=== PATIENT | male | born 2000 | race African-American/Black ===

== ENCOUNTER 2022-03-31 07:51 | Emergency (ER) | payer SELFPAY ==
--- NOTE | ~2022-03-31 | CT_ITS ---
EXAMINATION: CT brain wo con INDICATION: Headache COMPARISON: None TECHNIQUE: Standard unenhanced head CT. The dose-length product (DLP) was 605.33 mGy-cm. The mA was a djusted according to patient size. Iterative reconstruction technique was employed. FINDINGS: There is no intracranial hemorrhage, acute infarction, or abnormal mass lesion. The ventric les are normal. There is no abnormal mass effect or midline shift. The vazquez-white matter differentiat ion is normal. The basal cisterns are patent. There are changes of surgical repair in the right orbit . The orbits are otherwise normal. There is mild mucosal thickening of the paranasal sinuses. IMPRESSION: 1. No acute intracranial abnormality. Reviewed, dictated and finalized at location A.
[2022-03-31 08:05] VITALS: BP 130/86; PULSE 82; RESP 16; TEMP 36.6; O2SAT 100
--- NOTE | 2022-03-31 10:27 | ED.HA ---
HPI - Headache General Chief Complaint: Headache Stated Complaint: onset mauricio 2 days ago/now feels tight band Time Seen by Provider: 03/31/22 09:09 Source: patient Mode of arrival: ambulatory Limitations: no limitations History of Present Illness HPI Narrative: This is a 21 year old male that presents to the ER for headaches. Ongoing over the last couple of days. Associated with some nausea and lightheadedness. Denies fever, vomiting, numbness or weakness. Review of Systems Review of Systems: CONSTITUTIONAL: Denies fever EYES: Denies visual changes GASTROINTESTINAL: Denies vomiting NEUROLOGIC: Reports headache. Denies numbness, or weakness. All systems reviewed & are unremarkable except as noted in HPI and below PMFSH Past Medical History Medical History (Updated 03/31/22 @ 10:36 by Lyric Velarde PA-C) History of anxiety Social History Social History (Updated 03/31/22 @ 10:30 by Lyric Velarde PA-C) Smoking status: Former smoker Alcohol intake: current Substance use: current Substance use type: marijuana Exam Narrative: GENERAL: Well-appearing, well-nourished, and in no acute distress. HEAD: Normocephalic, atraumatic. EYES: PERRLA and EOMI. ENT: Nares clear, no rhinorrhea or epistaxis. Mucous membranes moist. Oropharynx without tonsillar hypertrophy exudate or other lesions. Bilateral TMs pearly vazquez non-bulging NECK: Supple. No adenopathy or masses. CHEST: Clear to auscultation. No respiratory distress. No wheezes rales or rhonchi HEART: Regular rate and rhythm. No murmur heard. Normal peripheral pulses. EXTREMITIES: Normal range of motion. No edema. Strength equal in bilateral upper and lower extremities (5/5) SKIN: Warm, dry, no rash. NEURO: No focal deficits. Alert and oriented x3. Cranial nerves II through XII grossly intact. Normal [id number] PSYCH: Normal mood and affect Course Vital Signs Vital signs: Vital Signs Temperature 97.8 F 03/31/22 08:05 Pulse Rate 82 03/31/22 08:05 Respiratory Rate 16 03/31/22 08:05 Blood Pressure 130/86 03/31/22 08:05 Pulse Oximetry 100 03/31/22 08:05 Oxygen Delivery Room Air 03/31/22 08:05 Temperature 97.8 F 03/31/22 08:05 Pulse Rate 82 03/31/22 08:05 Respiratory Rate 16 03/31/22 08:05 Blood Pressure 130/86 03/31/22 08:05 Pulse Oximetry 100 03/31/22 08:05 Oxygen Delivery Room Air 03/31/22 08:05 MDM - Headache MDM Narrative Medical decision making narrative: Patient presents emergency department for headaches ongoing over the last couple of days. Does report history of cluster headaches and migraine headaches. Reports he has not seen a neurologist or take any medications for this in a while. He does not have an active headache currently. Patient is afebrile and nontoxic-appearing. His vitals are stable. He is neurologically intact. CT scan of the brain is without acute findings. Patient was instructed he should have close follow-up with a neurologist. He was given warnings to return to the ER Imaging Data Radiologist's impression: ITS Impressions Head CT 03/31/22 09:43 IMPRESSION: 1. No acute intracranial abnormality. Critical Care Time Critical Care Time Critical Care Time: No Discharge Plan Discharge Clinical Impression: Headache Qualifiers: Headache type: unspecified Headache chronicity pattern: acute headache Intractability: not intractable Qualified Code(s): R51.9 - Headache, unspecified Patient Disposition: Home, Self-Care Condition: Stable Instructions: Acute Headache (ED) Additional Instructions: Return to the emergency department if you experience fever, vision changes, vomiting, sudden onset numbness or weakness, or any other symptoms that are concerning to you Rest. Remain well-hydrated. [id number] pain medication as needed Follow-up with neurology Follow-up/Referrals: Jewel Danielson MD [Physician] - 3 Days PHYSICIAN,WASTEWATER ANALYST LAB ANALYST [Primary Ca
[2022-03-31 10:46] VITALS: BP 112/74; PULSE 74; RESP 16; O2SAT 100
== END 2022-03-31 10:47 | disposition home or self-care (01) ==
PROVIDERS: Emergency Provider Emergency Medicine
DX: R51.9 Headache, unspecified (principal); F41.9 Anxiety disorder, unspecified
CPT/HCPCS: 70450; 99284

== ENCOUNTER 2022-08-26 08:34 | Emergency (ER) | payer SELFPAY ==
--- NOTE | 2022-08-26 08:45 | ED.URI ---
HPI - URI/Sore Throat General Chief Complaint: Upper Respiratory Infection Stated Complaint: SORE THROAT/RUNNY NOSE/CONGESITON/TIRED Time Seen by Provider: 08/26/22 09:00 Source: patient and RN notes reviewed Mode of arrival: ambulatory Limitations: no limitations History of Present Illness HPI Narrative: 21-year-old male presents with concern for body aches, sinus pressure, congestion, rhinorrhea that started yesterday. Reports he went to a earlier this week. Reports his significant other has similar symptoms since it is this child. Reports he took DayQuil and NyQuil with little relief MD elicited complaint: sore throat and nasal congestion Related Data Home Medications Medication Instructions Recorded Confirmed escitalopram oxalate 10 mg tablet 10 mg PO DAILY 08/26/22 08/26/22 (Lexapro) Allergies Allergy/AdvReac Type Severity Reaction Status Date / Time No Known Allergies Allergy Verified 08/26/22 09:11 Review of Systems Review of Systems: CONSTITUTIONAL: Reports malaise. Denies chills, sweats, or fever. EYES: Denies visual changes, redness, or discharge. ENT: Reports rhinorrhea, congestion, sore throat. Denies sinus pain, otalgia CARDIOVASCULAR: Denies chest pain, palpitations, or edema. RESPIRATORY: Reports cough. Denies dyspnea. GASTROINTESTINAL: Denies abdominal pain, nausea, vomiting, diarrhea SKIN: Denies rash or itching. MUSCULOSKELETAL: Reports myalgia. NEUROLOGIC: Denies headache. All systems reviewed & are unremarkable except as noted in HPI and below PMFSH Past Medical History Medical History (Updated 08/26/22 @ 09:41 by Jeniffer Savage NP) History of anxiety Social History Social History (Updated 03/31/22 @ 10:30 by Lyric Velarde PA-C) Smoking status: Former smoker Alcohol intake: current Substance use: current Substance use type: marijuana Comments At time of signature, agree with nursing past medical, surgical, social and family history. There is no relevant family history pertinent to the presenting complaint Exam Narrative: GENERAL: Well-appearing, well-nourished, and in no acute distress. HEAD: Normocephalic EYES: PERRLA, conjunctivae clear ENT: Nares clear, turbinates edematous and erythematous, clear discharge. Mucous membranes moist. TM pearly vazquez with sharp light reflex bilaterally; no tragal tenderness. Oropharynx not erythematous without lesions. Tonsils not enlarged and without exudate, no drooling, no hoarseness, no trismus, uvula midline. NECK: Supple. No lymphadenopathy CHEST: Clear to auscultation, breath sounds equal. No wheezing, rhonchi, rales, or stridor. No respiratory distress, speaks in full sentences. HEART: Regular rate and rhythm. No murmur heard. SKIN: Warm, dry, no rash. NEURO: Alert and oriented x3. PSYCH: Normal mood and affect Course Course Emergency Course: Patient is aware of diagnosis, understands and agrees to treatment plan. Anticipatory guidance given. Patient agrees to follow-up as directed and is aware of reasons to seek care at the emergency department. Portions of this record may have been created with voice recognition software Level of Care: Express Care Visit Vital Signs Vital signs: Reviewed. MDM - URI/Sore Throat MDM Narrative Medical decision making narrative: Differential diagnosis considered: Allison virus, strep pharyngitis, allergic rhinitis, upper respiratory tract infection, sinusitis, rhinosinusitis, nasopharyngitis. viral pharyngitis, otitis media, otitis externa, pneumonia, bronchitis, viral cough syndrome, viral syndrome, and influenza. Exam findings show no acute concerns or changes; patient is non-toxic appearing and is in no distress. Patient is appropriate for outpatient treatment and follow-up. Lab Data Attestation: I reviewed the patient's lab results. Critical Care Time Critical Care Time Critical Care Time: No Discharge Plan Discharge Clinical Impression: Viral illness Pat
[2022-08-26 09:03] VITALS: BP 130/109; PULSE 105; RESP 16; TEMP 37; O2SAT 99
== END 2022-08-26 09:50 | disposition home or self-care (01) ==
PROVIDERS: Emergency Provider Nurse Practitioner
DX: B34.9 Viral infection, unspecified (principal); Z20.822 Contact with and (suspected) exposure to COVID-19; Z87.891 Personal history of nicotine dependence; F41.9 Anxiety disorder, unspecified
CPT/HCPCS: 87081; 87426; 87880; 99213; C9803; G0463

== ENCOUNTER 2022-10-04 05:07 | Emergency (ER) | payer SELFPAY ==
--- NOTE | ~2022-10-04 | XR_ITS ---
EXAMINATION: XR chest 1V portable DATE: 10/04/2022 06:55 INDICATION: Chest pain. TECHNIQUE: A single frontal view of the chest was obtained. COMPARISON: None. FINDINGS: The chest demonstrates clear lungs without pneumonia, pleural effusion, or pneumothorax. Th e heart size is normal. IMPRESSION: 1. No acute cardiopulmonary disease. Reviewed, dictated and finalized at location A.
[2022-10-04 05:07] VITALS: BP 131/88; PULSE 72; RESP 20; TEMP 36.6; O2SAT 100
--- NOTE | 2022-10-04 05:59 | PC.NURSE ---
Pt sleeping on stretcher with family at bedside
[2022-10-04 06:07] VITALS: BP 133/77; PULSE 77; RESP 18; O2SAT 100
--- NOTE | 2022-10-04 06:09 | PC.NURSE ---
Pt states he wants to go home. Pt educated on risks of leaving before seeing provider and benefits of staying, verbalized understanding. Pt denied any questions. Ambulated out of ED with steady gait, in no obvious distress.
--- NOTE | 2022-10-04 06:19 | ECG_ITS ---
Measurements Intervals [place] Rate: 58 P: 129 VA: 162 QRS: 87 QRSD: 94 T: 118 QT: 396 QTc: 390 Interpretive Statements SINUS BRADYCARDIA ST ELEVATION, PROBABLY EARLY REPOLARIZATION [ST ELEVATION WITH NORMALLY INFLECTED T WAVE] BORDERLINE ECG NO PREVIOUS ECG AVAILABLE FOR COMPARISON Electronically Signed On 10-04-2022 7:12:59 CDT by Cody Rodriguez M.D.
--- NOTE | 2022-10-04 06:20 | PC.NURSE ---
Pt states he would like to stay. EDP romy aware
[2022-10-04] MEDS: LORazepam (*CRX) 1 MG TABLET PO (06:26)
[2022-10-04 07:12] VITALS: BP 133/77; PULSE 88; RESP 18; O2SAT 100
--- NOTE | 2022-10-04 07:25 | ED.GENADULT ---
HPI - General Adult General Chief complaint: Anxiety Stated complaint: anxiety Time Seen by Provider: 10/04/22 05:09 History of Present Illness HPI narrative: this is a 21-year-old gentleman with history of anxiety and panic disorder presenting ED after an anxiety attack at work. Patient said that he took a 5 hour energy and shortly after he started to have palpitations, shortness of breath, feelings of impending doom, chest pain and nausea and vomiting. Patient has had many panic attacks in the past this is typically how they present. Patient had to leave his job and then came to the emergency department for evaluation. Denies other complaints this time. Related Data Home Medications Medication Instructions Recorded Confirmed escitalopram oxalate 10 mg tablet 10 mg PO DAILY 08/26/22 08/26/22 (Lexapro) Allergies Allergy/AdvReac Type Severity Reaction Status Date / Time No Known Allergies Allergy Verified 08/26/22 09:11 [facility] Past Medical History Medical History History of anxiety Social History Social History Smoking status: Former smoker Alcohol intake: current Substance use: current Substance use type: marijuana Exam Narrative: APPEARANCE: No apparent distress. Head: atraumatic. EYES: EOMI, NOSE: Atraumatic NECK: Trachea midline RESPIRATORY: No increased rate of breathing, clear to auscultation CARDIOVASCULAR: RRR, no peripheral edema ABDOMINAL: Non-distended MUSCULOSKELETAl: No obvious deformities NEURO: Alert. Moving 4/4 extremities SKIN:: Warm, dry. Normal color PSYCHIATRIC: patient appears anxious Course Vital Signs Vital signs: Vital Signs Temperature 97.9 F 10/04/22 05:07 Pulse Rate 72 10/04/22 05:07 Respiratory Rate 20 10/04/22 05:07 Blood Pressure 131/88 10/04/22 05:07 Pulse Oximetry 100 10/04/22 05:07 Oxygen Delivery Room Air 10/04/22 05:07 Temperature 97.9 F 10/04/22 05:07 Pulse Rate 88 10/04/22 07:12 Respiratory Rate 18 10/04/22 07:12 Blood Pressure 133/77 10/04/22 07:12 Pulse Oximetry 100 10/04/22 07:12 Oxygen Delivery Room Air 10/04/22 05:07 Medical Decision Making [facility] Narrative Medical decision making narrative: -Presentation: 21-year-old with anxiety disorder presenting with panic attack. 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 Dx tests considered but not ordered: -Procedures: -Interventions: 1 mg p.o. Ativan -Shared decision making / Disposition: upon re-evaluation patient is feeling better. He is comfortable following up his primary care physician -RX Vital Signs Vital Signs: Vital Signs Temperature 97.9 F 10/04/22 05:07 Pulse Rate 72 10/04/22 05:07 Respiratory Rate 20 10/04/22 05:07 Blood Pressure 131/88 10/04/22 05:07 Pulse Oximetry 100 10/04/22 05:07 Oxygen Delivery Room Air 10/04/22 05:07 Temperature 97.9 F 10/04/22 05:07 Pulse Rate 88 10/04/22 07:12 Respiratory Rate 18 10/04/22 07:12 Blood Pressure 133/77 10/04/22 07:12 Pulse Oximetry 100 10/04/22 07:12 Oxygen Delivery Room Air 10/04/22 05:07 Discharge Plan Discharge
[2022-10-04 07:31] VITALS: BP 135/86; PULSE 93; RESP 18; O2SAT 100
== END 2022-10-04 07:33 | disposition home or self-care (01) ==
PROVIDERS: Emergency Provider Emergency Medicine
DX: F41.9 Anxiety disorder, unspecified (principal); F41.0 Panic disorder [episodic paroxysmal anxiety]
CPT/HCPCS: 71045; 93005; 99283; A9270

== ENCOUNTER 2023-10-18 09:15 | Outpatient (CLI) | payer OTHER, SELFPAY ==
--- NOTE | 2023-10-18 11:00 | NEURO_ITS ---
Impression: # Complains of right upper extremity pain/discomfort. Not diabetic. # Subtle evolving right Carpal Tunnel Syndrome. # No ulnar neuropathy. # Normal needle/EMG exam proximally and distally. # Clinical correlation recommended. Nerve Conduction Studies Anti Sensory Summary Table Stim Site NR Peak (ms) P-T Amp (?V) Site1 Site2 Delta-P (ms) Dist (cm) Von (m/s) Right Median Anti Sensory (2-3nd Digit) Wrist 3.3 56.5 Wrist 2-3nd Digit 3.3 14.0 42 Wrist 3.2 68.8 Wrist 2-3nd Digit 3.3 14.0 42 Right Radial Anti Sensory (Base 1st Digit) Wrist 2.7 34.3 Wrist Base 1st Digit 2.7 0.0 Right Ulnar Anti Sensory (5th Digit) Wrist 2.1 52.1 Wrist 5th Digit 2.1 14.0 67 Motor Summary Table Stim Site NR Onset (ms) O-P Amp (mV) Site1 Site2 Delta-0 (ms) Dist (cm) Von (m/s) Right Median Motor (Abd Poll Brev) Wrist 3.8 7.4 Elbow Wrist 4.6 30.0 65 Elbow 8.4 5.2 Right Ulnar Motor (Abd Dig Minimi) Wrist 2.6 5.1 A Elbow Wrist 5.1 33.0 65 A Elbow 7.7 5.2 F Wave Studies NR F-Lat (ms) L-R F-Lat (ms) Right Median (Mrkrs) (Abd Poll Brev) 26.48 Right Ulnar (Mrkrs) (Abd Dig Min) 26.41 EMG Side Muscle Nerve Root Ins Act Fibs Amp Dur Recrt Comment Right 1stDorInt Ulnar C8-T1 Nml Nml Nml Nml Nml Right Ext Indicis Radial (Post Int) C7-8 Nml Nml Nml Nml Nml Right Ext Digitorum Radial (Post Int) C7-8 Nml Nml Nml Nml Nml Right BrachioRad Radial C5-6 Nml Nml Nml Nml Nml Right PronatorTeres Median C6-7 Nml Nml Nml Nml Nml Right Abd Poll Brev Median C8-T1 Nml Nml Nml Nml Nml Right ABD Dig Min Ulnar C8-T1 Nml Nml Nml Nml Nml Right Biceps Musculocut C5-6 Nml Nml Nml Nml Nml MTDD
== END 2023-10-18 09:16 | disposition home or self-care (01) ==
PROVIDERS: Visit Provider Orthopaedic Surgery
DX: G56.01 Carpal tunnel syndrome, right upper limb (principal)
CPT/HCPCS: 95886; 95909